=== PATIENT | female | born 1950 | race Caucasian/White ===

== ENCOUNTER 2017-08-04 20:10 | Inpatient (IN) | payer MEDICARE, OTHER ==
--- NOTE | 2017-08-04 20:27 | ED ---
Fall HPI <Cristian Vences - Last Filed: 08/04/17 23:35> - General Source: family, EMS Mode of arrival: EMS <Marisol Pablo - Last Filed: 08/05/17 00:11> - General Chief Complaint: Fall Stated Complaint: Fall Time Seen by Provider: 08/04/17 20:13 - History of Present Illness Initial Comments: 67-year-old female patient presents to the emergency department today for complaints of left hip and thigh pain after experiencing a fall at home. The patient states that she was walking in the hallway when her grippy socks caught on the floor and she fell sideways landing on her hip. She states since then she has been having significant pain. States she is unable to bend her knee up without experiencing pain in the hip. She denies any numbness or tingling to the leg. Denies hitting her head or losing consciousness at the time of fall. She denies any neck or back pain with this. Patient denies any headache, neck pain, back pain, chest pain, shortness of breath, dizziness, weakness, abdominal pain, nausea, vomiting, or difficulties with bowel movements or urination. (Marisol Pablo) - Related Data Home Medications Medication Instructions Recorded Confirmed No Known Home Medications [No 08/04/17 08/04/17 Known Home Medications] Allergies Allergy/AdvReac Type Severity Reaction Status Date / Time amoxicillin AdvReac Rash/Hives Verified 08/04/17 20:16 codeine AdvReac Rash/Hives Verified 08/04/17 20:16 Penicillins AdvReac Rash/Hives Verified 08/04/17 20:16 Review of Systems ROS Other: All systems not noted in ROS Statement are negative. <Cristian Vences - Last Filed: 08/04/17 23:35> ROS Other: All systems not noted in ROS Statement are negative. <Marisol Pablo - Last Filed: 08/05/17 00:11> ROS Statement: Those systems with pertinent positive or pertinent negative responses have been documented in the HPI. 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 History of Any Multi-Drug Resistant Organisms: None Reported Past Surgical History: No Surgical Hx Reported Past Psychological History: No Psychological Hx Reported Smoking Status: Never smoker Past Alcohol Use History: None Reported Past Drug Use History: None Reported <AngieMarisol jorgensen M - Last Filed: 08/05/17 00:11> General Exam General appearance: alert, in no apparent distress, other (This is a well- developed, well-nourished elderly female patient in no acute distress. Vital signs upon presentation are temperature 98.4F, pulse 87, respirations 16, blood pressure 145/70, pulse ox 97% on room air.) Eye exam: Present: normal appearance, PERRL, EOMI. Absent: scleral icterus, conjunctival injection, periorbital swelling ENT exam: Present: normal exam, normal oropharynx, mucous membranes moist Neck exam: Present: normal inspection, full ROM, other (Nontender, no step-off, no deformity to firm midline palpation of the posterior cervical spine. Full range of motion without pain or limitation.). Absent: tenderness, meningismus, lymphadenopathy Respiratory exam: Present: normal lung sounds bilaterally. Absent: respiratory distress, wheezes, rales, rhonchi, stridor Cardiovascular Exam: Present: regular rate, normal rhythm, normal heart sounds. Absent: systolic murmur, diastolic murmur, rubs, gallop, clicks GI/Abdominal exam: Present: soft, normal bowel sounds. Absent: distended, tenderness, guarding, rebound, rigid Extremities exam: Present: normal inspection, tenderness (Over the left hip, lateral.), normal capillary refill, other (Skin to the bilateral lower extremities is pink, warm, and dry. Cap refills less than 3 seconds. Pedal pulses are 2+ and equal bilaterally.). Absent: full ROM (Decreased range of motion to left hip due to increased pain with movement), pedal edema, joint swelling, calf tenderness Back exam: Present: normal inspection Neurological exam: Present: alert, oriented X3, CN II-XII intact Psychiatric exam: Present: normal affect, normal mood Skin exam: Present: warm, dry, intact, normal color. Absent: rash <AngiejoslynMarisol M - Last Filed: 08/05/17 00:11> Vital Signs 08/04/17 08/04/17 08/04/17 20:12 22:06 22:53 Temperature 98.4 F Pulse Rate 87 84 84 Respiratory 16 18 16 Rate Blood Pressure 145/70 129/68 124/65 O2 Sat by Pulse 97 95 93 L Oximetry Medical Decision Making <Cristian Vences - Last Filed: 08/04/17 23:35> - Radiology Data Radiology results: report reviewed, image reviewed <Marisol Pablo - Last Filed: 08/05/17 00:11> - Medical Decision Making Medical decision making; 67-year-old female had a fall with injury to her left hip area. A CAT scan showed evidence of a fracture to the left inferior and superior rami . No apparent fracture of the acetabulum. The patient has pain with manipulation of the hip area. The case is discussed with Dr. Berger, on- call orthopedic surgeon. Patient be admitted to his service for further evaluation and management. Dr. Vences (Cristian Vences) 67-year-old female patient presented to the emergency department today for evaluation of left hip pain after a fall at home. CT showed evidence of fracture to the left inferior and superior rami. I did discuss findings with the patient. My attending Dr. Vences did speak to orthopedic on-call Dr. Berger. Plan is to admit the patient for further evaluation. (Marisol Pablo) - Lab Data Lab Results 08/04/17 Range/Units 21:54 Urine Color Yellow Urine Appearance Clear (Clear) Urine pH 5.5 (5.0-8.0) Ur Specific [employer] 1.013 (1.001-1.035) Urine Protein Negative (Negative) Urine Glucose (UA) Negative (Negative) Urine Ketones Negative (Negative) Urine Blood Negative (Negative) Urine Nitrite Positive H (Negative) Urine Bilirubin Negative (Negative) Urine Urobilinogen <2.0 (<2.0) mg/dL Ur Leukocyte Esterase Large H (Negative) Urine RBC 1 (0-5) /hpf Urine WBC 24 H (0-5) /hpf Urine WBC Clumps Few H (None) /hpf Ur Squamous Epith Cells <1 (0-4) /hpf Urine Bacteria Many H (None) /hpf Urine Mucus Rare H (None) /hpf - Radiology Data A single AP view of the pelvis and 2 views of left hip are obtained. Department was reviewed in its entirety. Impression by Dr. Fernandez shows demineralization with acute minimally displaced fracture lateral aspect left superior pelvic ramus with probable acetabular extension. There is acute nondisplaced vertical fracture more medially through the left inferior pelvic ramus. CT of the pelvis without contrast was obtained, report was reviewed in its entirety. Impression by Dr. Fernandez shows redemonstration of acute nondisplaced fracture medial aspect left inferior pelvic ramus and oblique minimally displaced through the lateral aspect of the superior pelvic ramus. There is no definitive acetabular extension identified on CT. No no additional fractures are identified. (Marisol Pablo) Disposition <Cristian Vences - Last Filed: 08/04/17 23:35> Decision to Admit Reason: Admit from EC Decision Date: 08/05/17 Decision Time: 00:11 <Marisol Pablo - Last Filed: 08/05/17 00:11> Clinical Impression: Fracture of left pelvis Disposition: ADMITTED IP TO THIS [facility] Condition: Serious Referrals: None,Stated [Primary Care Provider] - 1-2 days
--- NOTE | 2017-08-04 20:45 | XR ---
EXAMINATION TYPE: XR Hip LT and AP Pelvis DATE OF EXAM: 08/04/2017 COMPARISON: NONE HISTORY: Pelvic and left hip pain after fall injury. TECHNIQUE: A single AP view of the pelvis is obtained. Two views of the left hip are obtained. FINDINGS: Osseous structures are demineralized which is noted to lower radiographic sensitivity. The re is acute minimally displaced fracture through the lateral aspect left superior pelvic ramus near l evel of acetabulum. There is acute nondisplaced vertical fracture or centrally in the left inferior p elvic ramus. Incidental scattered pelvic phleboliths. Sacroiliac joints are preserved. There is no additional acute fracture in the left hip. No hip joint dislocation is identified. IMPRESSION: There is demineralization with acute minimally displaced fracture lateral aspect left s uperior pelvic ramus with probable acetabular extension. There is acute nondisplaced vertical fractur e more medially through the left inferior pelvic ramus. (Initial encounter closed type posttraumatic fracture)
--- NOTE | 2017-08-04 21:33 | CT ---
EXAMINATION TYPE: CT pelvis wo con DATE OF EXAM: 08/04/2017 COMPARISON: Same day pelvic and left hip x-ray. HISTORY: Fall. Abnormal pelvic and left hip x-ray. Left hip pain. CT DLP: 164.3 mGycm Automated exposure control for dose reduction was used. FINDINGS: As suspected on plain films there is minimally displaced suspected acute fracture through the inferio r left pelvic ramus centrally near pubic symphysis. No suspicious pubic symphysis widening is seen. There is acute minimally displaced oblique fracture through the lateral aspect left superior pelvic r amus, this does not have definitive involvement of the anterior column of the left acetabulum on axia l images. There are no additional fractures in the pelvis including sacrum. Sacroiliac joints are maintained. There is symmetric moderate axial joint space loss in both hips. No joint dislocation is seen. There are scattered pelvic phleboliths. Visualized portion of lower abdomen and pelvis shows no suspi cious abnormality. IMPRESSION: REDEMONSTRATION OF ACUTE NONDISPLACED FRACTURE MEDIAL ASPECT LEFT INFERIOR PELVIC RAMUS AND OBLIQUE M INIMALLY DISPLACED THROUGH THE LATERAL ASPECT OF SUPERIOR PELVIC RAMUS. THERE IS NO DEFINITIVE ACETAB ULAR EXTENSION IDENTIFIED ON CT. NO NEW ADDITIONAL FRACTURES ARE IDENTIFIED .
[2017-08-04 22:18] LABS: Appearance,Urine Clear (Clear); Bacteria,Urine Many /hpf; Bilirubin,Urine Negative (Negative); Blood,Urine Negative (Negative); Color,Urine Yellow; Glucose,Urine (UA) Negative (Negative); Ketones,Urine Negative (Negative); Leukocyte Esterase,Urine Large (Negative); Mucus,Urine Rare /hpf; Nitrite,Urine Positive (Negative); PH, Urine 5.5 (5.0-8.0); Protein,Urine Negative (Negative); RBC,Urine 1 /hpf (0-5); Specific Gravity,Urine 1.013 (1.001-1.035); Squamous Epithelial Cell,Urine <1 /hpf (0-4); Urobilinogen,Urine <2.0 mg/dL (<2.0); WBC,Urine 24 /hpf (0-5)
[2017-08-05] MEDS ORDERED: NALOXONE 0.4 MG/ML 1 ML VIAL IV PRN (00:11)
[2017-08-05] MEDS ORDERED: ONDANSETRON 4 MG/2 ML VIAL IVP PRN (00:11)
[2017-08-05] MEDS ORDERED: cefTRIAXone IN SWFI 1,000 MG/10 ML SYRINGE IVP STA (00:13)
--- NOTE | 2017-08-05 00:15 | ED ---
Medical Decision Making - Medical Decision Making Patient also has evidence of urinary tract infection. We'll start her on Rocephin while she is here in the hospital. - Lab Data Lab Results 08/04/17 Range/Units 21:54 Urine Color Yellow Urine Appearance Clear (Clear) Urine pH 5.5 (5.0-8.0) Ur Specific [place] 1.013 (1.001-1.035) Urine Protein Negative (Negative) Urine Glucose (UA) Negative (Negative) Urine Ketones Negative (Negative) Urine Blood Negative (Negative) Urine Nitrite Positive H (Negative) Urine Bilirubin Negative (Negative) Urine Urobilinogen <2.0 (<2.0) mg/dL Ur Leukocyte Esterase Large H (Negative) Urine RBC 1 (0-5) /hpf Urine WBC 24 H (0-5) /hpf Urine WBC Clumps Few H (None) /hpf Ur Squamous Epith Cells <1 (0-4) /hpf Urine Bacteria Many H (None) /hpf Urine Mucus Rare H (None) /hpf Disposition Clinical Impression: Fracture of left pelvis, Urinary tract infection Disposition: ADMITTED IP TO THIS [facility] Condition: Serious Referrals: None,Stated [Primary Care Provider] - 1-2 days
--- NOTE | 2017-08-05 00:35 | XR ---
EXAMINATION TYPE: XR chest 1V portable DATE OF EXAM: 08/05/2017 COMPARISON: NONE HISTORY: Pain TECHNIQUE: Single frontal view of the chest is obtained. FINDINGS: Heart is enlarged. There is no gross heart failure. There are chest leads. There is increa sed density over the right heart consistent with hiatal hernia. Exam is limited by the single view. T here is no sign of pleural effusion. There are chest leads. IMPRESSION: Cardiomegaly. Limited exam. There is probably COPD. No heart failure. There is probably a large hiatal hernia.
[2017-08-05 01:38] LABS: Basophils % (A) 0 %; Eosinophils % (A) 0 %; HCT 37.4 % (34.0-46.0); HGB 12.1 gm/dL (11.4-16.0); Lymphocytes # (A) 0.6 k/uL (1.0-4.8); Lymphocytes % (A) 5 %; MCH 27.3 pg (25.0-35.0); MCHC 32.2 g/dL (31.0-37.0); MCV 84.5 fL (80.0-100.0); Mean Platelet Volume 6.9; Monocytes # (A) 0.5 k/uL (0-1.0); Monocytes % (A) 4 %; Neutrophils # (A) 9.7 k/uL (1.3-7.7); Neutrophils % (A) 90 %; Platelet Count 245 k/uL (150-450); RBC 4.43 m/uL (3.80-5.40); RDW 13.4 % (11.5-15.5); WBC 10.9 k/uL (3.8-10.6)
[2017-08-05] MEDS: SODIUM CHLORIDE 0.9% 1,000 ML IV SCH ×2 (01:39→17:43)
[2017-08-05 01:47] LABS: Partial Thromboplastin Time 22.7 sec (22.0-30.0); Prothrombin Time 10.1 sec (9.0-12.0)
[2017-08-05 01:51] LABS: Albumin 3.9 g/dL (3.5-5.0); Calcium 9.5 mg/dL (8.4-10.2); Potassium 4.3 mmol/L (3.5-5.1); Total Bilirubin 1.2 mg/dL (0.2-1.3); Total Protein 6.8 g/dL (6.3-8.2)
[2017-08-05 03:34] VITALS: BMI 21.9
[2017-08-05] MEDS: MORPHINE SULFATE 4 MG/ML SYRINGE IV PRN ×2 (03:47→09:36)
--- NOTE | 2017-08-05 12:38 | P.HPOR ---
History of Present Illness H&P Date: 08/05/17 Chief Complaint: Left-sided pelvic pain Patient is a very pleasant 67-year-old female who is seen and examined at bedside for further treatment and evaluation for left superior and left inferior pubic rami fractures status post fall. Patient states she fell in her home yesterday in her hallway landing on her left side. She's had significant pain since that time. She was brought to the emergency department for further treatment and evaluation. X-rays of the left hip and pelvis along with the pelvis CT were performed which did show evidence of left superior and inferior pubic rami fractures. No evidence of hip joint fracture or dislocation was found. Patient was also found to have a urinary tract infection in the emergency department. She is currently on Rocephin. She denies any lower extremity radiculopathy or weakness bilaterally. She does have some difficulty with rolling over in bed and lifting her left lower extremity due to her pelvic pain. She states she sustained a similar injury in 2010 in which she was in a wheelchair for approximately 6 months. She does live alone at home in a single floor dwelling. Patient feels she would like to go but is unable to ambulate or move without significant difficulty. Straight catheterization was performed this morning. Consultation with physical therapy has not been placed. Patient has no significant medical history and is not currently taking any medications at home. She does report an ALLERGY to codeine. 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 History of Any Multi-Drug Resistant Organisms: None Reported Past Surgical History: No Surgical Hx Reported Past Psychological History: No Psychological Hx Reported Smoking Status: Never smoker Past Alcohol Use History: None Reported Past Drug Use History: None Reported - Past Family History Father History Unknown: Yes Medications and Allergies Home Medications Medication Instructions Recorded Confirmed Type No Known Home Medications [No 08/04/17 08/04/17 History Known Home Medications] Allergies Allergy/AdvReac Type Severity Reaction Status Date / Time Latex, Natural Rubber Allergy Rash/Hives Verified 08/05/17 03:35 amoxicillin AdvReac Rash/Hives Verified 08/05/17 03:35 codeine AdvReac Rash/Hives Verified 08/05/17 03:35 Penicillins AdvReac Rash/Hives Verified 03/11/18 03:35 Physical Examination Physical exam: Patient is awake, alert, and oriented 3 Vital signs stable Good chest excursion with deep inspiration and expiration Abdomen soft nontender Examination of lumbar spine reveals skin is intact with no abrasions, lacerations, or bruises; no erythema, purulence or signs of infection No pain with palpation of the lower lumbar spine and sacrum Dorsiflexion, plantarflexion, and extensor hallucis longus positive sustained bilaterally Lower extremity strength 5/5 on the right Significant difficulty with moving the left lower extremity with hip flexion due to pain Significant exacerbation of left-sided pelvic pain while rolling the patient to her side No signs or symptoms of DVT; no calf pain Pneumatic cuffs intact bilateral lower extremities Neurovascularly intact Results Pertinent studies: X-rays of the left hip and pelvis: Acute minimally displaced fracture at the lateral aspect of the left superior pelvic ramus with probable acetabular extension; acute nondisplaced vertical fracture more medially to the left inferior pubic ramus; no additional fracture seen within the left hip; no evidence of hip joint dislocation CT of the pelvis: Redemonstrated acute nondisplaced fracture of the medial aspect of the left inferior pubic ramus an oblique minimally displaced fracture to the lateral aspect of the superior pelvic ramus with no definitive acetabular extension identified on CT; no evidence of new additional fractures identified - Labs Labs: Abnormal Lab Results - Last 24 Hours (Table) 08/04/17 08/05/17 08/05/17 Range/Units 21:54 01:20 01:20 WBC 10.9 H (3.8-10.6) k/uL Neutrophils # 9.7 H (1.3-7.7) k/uL Lymphocytes # 0.6 L (1.0-4.8) k/uL Chloride 108 H (98-107) mmol/L BUN 20 H (7-17) mg/dL Glucose 118 H (74-99) mg/dL Urine Nitrite Positive H (Negative) Ur Leukocyte Esterase Large H (Negative) Urine WBC 24 H (0-5) /hpf Urine WBC Clumps Few H (None) /hpf Urine Bacteria Many H (None) /hpf Urine Mucus Rare H (None) /hpf Microbiology - Last 24 Hours (Table) 08/04/17 21:54 Urine Culture - Preliminary Urine,Voided H & H 08/05/17 Range/Units 01:20 Hgb 12.1 (11.4-16.0) gm/dL Hct 37.4 (34.0-46.0) % Coagulation 08/05/17 Range/Units 01:20 INR 1.0 (<1.2) Result Diagrams: 08/05/17 01:20 08/05/17 01:20 Assessment and Plan Assessment: Assessment: Acute traumatic left superior and left inferior pubic rami fractures Status post fall Pelvic pain Difficulty with ambulation mobility Urinary tract infection (1) Status post fall Current Visit: Yes Status: Acute Code(s): Z91.81 - HISTORY OF FALLING SNOMED Code(s): 322403857 (2) Acute pelvic pain Current Visit: Yes Status: Acute Code(s): R10.2 - PELVIC AND PERINEAL PAIN SNOMED Code(s): 589091300 (3) Fracture of left pelvis Current Visit: Yes Status: Acute Code(s): S32.9XXA - FRACTURE OF UNSP PARTS OF LUMBOSACRAL SPINE AND PELVIS, INIT SNOMED Code(s): 81823724 (4) Urinary tract infection Current Visit: Yes Status: Acute Code(s): N39.0 - URINARY TRACT INFECTION, SITE NOT SPECIFIED SNOMED Code(s): 56667060 Plan: Plan: 1. Patient has been discussed in detail with Dr. Berger. After reviewing of imaging, physical examination of the patient, and further discussion with the patient, we'll currently plan to continue with conservative treatment. We are not planning for surgical intervention. She has been nothing by mouth status. We will discontinue this and she may resume a regular diet. She has been receiving morphine IV for pain control. We will plan to add Tylenol 650 mg 1 tab every 4 hours as needed for pain control. Patient does have an ALLERGY to codeine and we will avoid these medications. She has been taking morphine without difficulty. She will continue to receive morphine for breakthrough pain. We will try to transition her off of morphine IV in anticipation for discharge home tomorrow. We will plan for consultation with physical therapy to help increase the patient's mobility and ambulation. A prescription was also written for a wheelchair to help the patient aid in ambulation. Prescription has been written and provided to case management who will plan to obtain this wheelchair. We discussed patient may continue to weight-bear as tolerated. If she has some improvement of symptoms throughout the day, we'll plan for discharge home as early as tomorrow, 08/05/2017. 2. Continue with Rocephin as prescribed for urinary tract infection; Currently waiting for urinary culture results; continue with straight catheterization as needed 3. We will continue to follow patient closely 4. Following discharge, patient will plan to follow up with Carey Del Valle PA-C or Dr. Berger at [facility] in approximately 2 weeks for further evaluation 5. Patient has been discussed in detail with Dr. Berger and he agrees with this plan Time with Patient: Less than 30
[2017-08-05] MEDS: ACETAMINOPHEN TAB 325 MG TAB PO PRN ×2 (15:16→23:19)
[2017-08-05] MEDS ORDERED: cefTRIAXone IN SWFI 1,000 MG/10 ML SYRINGE IVP SCH (23:00)
[2017-08-05 23:34] VITALS: RESP 18
[2017-08-06] MEDS: ACETAMINOPHEN TAB 325 MG TAB PO PRN ×2 (05:43→10:24)
--- NOTE | 2017-08-06 08:23 | P.DS ---
Providers Date of admission: 08/05/17 00:39 Expected date of discharge: 08/06/17 Attending physician: Abbe Berger Primary care physician: Stated None - Discharge Diagnosis(es) (1) Acute pelvic pain Current Visit: Yes Status: Acute (2) Fracture of left pelvis Current Visit: Yes Status: Acute (3) Status post fall Current Visit: Yes Status: Acute Hospital Course: This is a 67-year-old female admitted to [facility] on 2017 after falling and sustaining injuries to her left hip. On exam and x-ray in the emergency department she is found to have a minimally displaced superior and inferior pubic rami fractures on the left. She was also found to have a urinary tract infection. The patient is doing well today. We're waiting physical therapy for evaluation. The patient is transferring from bed to chair independently. She is taking only Tylenol for pain as needed. The patient may be discharged to home today if considered safe by physical therapy. She is weightbearing as tolerated to the left lower extremity with walker. Patient Condition at Discharge: Serious Plan - Discharge Summary Discharge Rx Participant: Yes New Discharge Prescriptions: New Sulfamethox-Tmp 800-160Mg [Bactrim DS 800-160 mg] 1 tab PO Q12HR #14 tab Discharge Medication List Sulfamethox-Tmp 800-160Mg [Bactrim DS 800-160 mg] 1 tab PO Q12HR #14 tab [Rx] Follow up Appointment(s)/Referral(s): None,Stated [Primary Care Provider] - 1-2 days Abbe Berger MD [STAFF PHYSICIAN] - 2 Weeks (Patient may follow-up with Carey Del Valle PA-C or Dr. Berger at [facility] in 2 weeks following discharge. ) [facility] Visiting Nurse, [NON-STAFF] - As Needed Activity/Diet/Wound Care/Special Instructions: Wheelchair ordered through [facility]: #[phone] 1. May use a wheelchair to aid in ambulation as needed 2. Weightbearing as tolerated on the left lower extremity with walker. 3. May take Tylenol as needed for pain. Discharge Disposition: HOME SELF-CARE
[2017-08-06 13:47] VITALS: BP 121/75; PULSE 78; TEMP 98.5
[2017-08-06] MEDS ORDERED: MORPHINE ORAL SOLN 10 MG/5 ML CUP PO PRN (14:19)
== END 2017-08-06 16:44 | disposition home health service (06) | DRG 536 ==
LOC: EC 20:10 → 6PED 08-05 00:39
PROVIDERS: ADMIT Orthopaedic Surgery; ATTEND Orthopaedic Surgery
DX: S32.512A Fracture of superior rim of left pubis, initial encounter for closed fracture (principal); G89.11 Acute pain due to trauma; N39.0 Urinary tract infection, site not specified; S32.592A Other specified fracture of left pubis, initial encounter for closed fracture; Z85.828 Personal history of other malignant neoplasm of skin; Z91.81 History of falling; Z86.73 Personal history of transient ischemic attack (TIA), and cerebral infarction without residual deficits; Z88.5 Allergy status to narcotic agent; Z88.0 Allergy status to penicillin; Z91.040 Latex allergy status; W19.XXXA Unspecified fall, initial encounter; Y92.009 Unspecified place in unspecified non-institutional (private) residence as the place of occurrence of the external cause
CPT/HCPCS: 51701; 71045; 72192; 73502; 80053; 81001; 85025; 85610; 85730; 87077; 87086; 87186; 93005; 96374; 99285

== ENCOUNTER 2023-05-15 11:18 | Observation (INO) | payer MEDICARE, OTHER ==
[2023-05-15] MEDS ORDERED: SODIUM CHLORIDE 0.9% 1,000 ML IV STA (12:19)
[2023-05-15 12:42] LABS: Basophils # (A) 0.1 k/uL (0-0.2); Basophils % (A) 0 %; Eosinophils # (A) 0.2 k/uL (0-0.7); Eosinophils % (A) 1 %; HCT 35.2 % (34.0-46.0); HGB 11.3 gm/dL (11.4-16.0); Hypochromasia Slight; Lymphocytes # (A) 0.7 k/uL (1.0-4.8); Lymphocytes % (A) 6 %; MCH 28.3 pg (25.0-35.0); MCHC 32.1 g/dL (31.0-37.0); MCV 88.3 fL (80.0-100.0); Mean Platelet Volume 7.3; Monocytes # (A) 0.6 k/uL (0-1.0); Monocytes % (A) 4 %; Neutrophils # (A) 11.4 k/uL (1.3-7.7); Neutrophils % (A) 88 %; Platelet Count 314 k/uL (150-450); RBC 3.99 m/uL (3.80-5.40); RDW 14.6 % (11.5-15.5)
--- NOTE | 2023-05-15 12:49 | ED ---
Weakness HPI - General Chief complaint: Weakness Stated complaint: Weakness Time Seen by Provider: 05/15/23 12:10 Source: patient, EMS, RN notes reviewed, old records reviewed Mode of arrival: EMS Limitations: no limitations - History of Present Illness Initial comments: This is a 73-year-old female to the emergency department for evaluation of weakness today. Patient weakness not feeling well occasionally altered mental status. Patient has no chest pain or travel history or sick contacts no recent change in medications she is feels like she is not taking care of herself well feels confused, not acting appropriately, without headache no chest pain shortness breath or abdominal pain. No recent travel history or sick contacts. MD Complaint: generalized weakness, lack of energy, difficulty walking -: days(s) Location: generalized Severity: moderate Severity scale (1-10): 4 Quality: aching Consistency: constant Improves with: none Worsens with: none Context: recent illness, history of similar Associated Symptoms: confusion - Related Data Previous Rx's Medication Instructions Recorded Acetaminophen Tab [Tylenol] 650 mg PO Q6HR PRN tab 05/22/23 Famotidine [Pepcid] 20 mg PO DAILY tab 05/22/23 Folic Acid 1 mg PO DAILY #30 tablet 05/22/23 Heparin Sodium,Porcine (1 ml) 5,000 unit SQ Q12HR each 05/22/23 [Heparin Sodium] Multivitamin [Multivitamins Adult 1 each PO DAILY #30 tab 05/22/23 Gummies] Thiamine [Vitamin B-1] 100 mg PO DAILY #30 tablet 05/22/23 Allergies Allergy/AdvReac Type Severity Reaction Status Date / Time amoxicillin Allergy Rash/Hives Verified 05/15/23 13:21 codeine Allergy Rash/Hives Verified 05/15/23 13:21 Latex, Natural Rubber Allergy Rash/Hives Verified 05/15/23 13:21 Penicillins Allergy Rash/Hives Verified 05/15/23 13:21 Review of Systems ROS Statement: Those systems with pertinent positive or pertinent negative responses have been documented in the HPI. ROS Other: All systems not noted in ROS Statement are negative. 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 History of Any Multi-Drug Resistant Organisms: None Reported Past Surgical History: Hernia Repair Past Psychological History: No Psychological Hx Reported Smoking Status: Never smoker Past Alcohol Use History: None Reported Past Drug Use History: None Reported - Past Family History Father History Unknown: Yes General Exam Limitations: no limitations, altered mental status General appearance: alert, in no apparent distress, anxious Head exam: Present: atraumatic, normocephalic, normal inspection Eye exam: Present: normal appearance, PERRL, EOMI. Absent: scleral icterus, conjunctival injection, periorbital swelling ENT exam: Present: normal exam, mucous membranes moist Neck exam: Present: normal inspection. Absent: tenderness, meningismus, lymphad enopathy Respiratory exam: Present: normal lung sounds bilaterally. Absent: respiratory distress, wheezes, rales, rhonchi, stridor Cardiovascular Exam: Present: regular rate, normal rhythm, normal heart sounds. Absent: systolic murmur, diastolic murmur, rubs, gallop, clicks GI/Abdominal exam: Present: soft, normal bowel sounds. Absent: distended, tenderness, guarding, rebound, rigid Extremities exam: Present: normal inspection, full ROM, normal capillary refill. Absent: tenderness, pedal edema, joint swelling, calf tenderness Back exam: Present: normal inspection Neurological exam: Present: alert, oriented X3, CN II-XII intact Psychiatric exam: Present: normal affect, normal mood Skin exam: Present: warm, dry, intact, normal color. Absent: rash Course Vital Signs 05/15/23 05/15/23 05/15/23 11:20 11:30 12:00 Temperature 97.7 F Pulse Rate 89 83 81 Respiratory 18 16 15 Rate Blood Pressure 96/71 105/74 82/66 O2 Sat by Pulse 99 100 96 Oximetry 05/15/23 05/15/23 05/15/23 12:30 13:00 13:30 Temperature Pulse Rate 85 83 78 Respiratory 17 11 L 13 Rate Blood Pressure 100/67 110/95 114/71 O2 Sat by Pulse 98 97 96 Oximetry 05/15/23 05/15/23 14:00 18:32 Temperature Pulse Rate 82 83 Respiratory 15 18 Rate Blood Pressure 106/67 117/76 O2 Sat by Pulse 97 100 Oximetry - Reevaluation(s) Reevaluation #1: 05/15/23 17:29 Medical records reviewed Reevaluation #2: 05/15/23 17:29 Patient has no change in symptoms Reevaluation #3: 05/15/23 17:29 Patient informed results questions answered Reevaluation #4: 05/15/23 17:29 Was pt. sent in by a medical professional or institution (WENDIE Nazario, NUTRITION PROGRAM INSTRUCTOR, urgent care, hospital, or usp...) When possible be specific @ -no Did you speak to anyone other than the patient for history (EMS, parent, family, police, friend...)? What history was obtained from this source @ -no Did you review nursing and triage notes (agree or disagree)? Why? @ -agree Are old charts reviewed (outside hosp., previous admission, EMS record, old EKG, old radiological studies, urgent care reports/EKG's, usp records)? Report findings @ -yes Differential Diagnosis (chest pain, altered mental status, abdominal pain women, abdominal pain men, vaginal bleeding, weakness, fever, dyspnea, syncope, headache, dizziness, GI bleed, back pain, seizure, CVA, palpatations, mental health, musculoskeletal)? @ -prior EKG interpreted by me (3pts min.). @ -yes X-rays interpreted by me (1pt min.). @ -no CT interpreted by me (1pt min.). @ -no U/S interpreted by me (1pt. min.). @ -no What testing was considered but not performed or refused? (CT, X-rays, U/S, labs)? Why? @ -none What meds were considered but not given or refused? Why? @ -none Did you discuss the management of the patient with other professionals (professionals i.e. WENDIE Nazario, NUTRITION PROGRAM INSTRUCTOR, lab, RT, psych nurse, protective services social worker, golf teacher, teacher, desk officer, foster care case manager)? Give summary @ -no Was smoking cessation discussed for >3mins.? @ -no Was critical care preformed (if so, how long)? @ -no Were there social determinants of health that impacted care today? How? (Homelessness, low income, unemployed, alcoholism, drug addiction, transportat ion, low edu. Level, literacy, decrease access to med. care, intermediate, rehab)? @ -none Was there de-escalation of care discussed even if they declined (Discuss DNR or withdrawal of care, Hospice)? DNR status @ -no What co-morbidities impacted this encounter? (DM, HTN, Smoking, COPD, CAD, Cancer, CVA, ARF, Chemo, Hep., AIDS, mental health diagnosis, sleep apnea, morbid obesity)? @ -none Was patient admitted / discharged? Hospital course, mention meds given and route, prescriptions, significant lab abnormalities, going to OR and other pertinent info. @ - 73 female to the emergency department for evaluation of weakness found of significant urinary tract infection will be admitted for IV antibiotics, UTI with confusion ADmiitted Undiagnosed new problem with uncertain prognosis? @ -no Drug Therapy requiring intensive monitoring for toxicity (Heparin, Nitro, Insulin, Cardizem)? @ -no Were any procedures done? @ -no Diagnosis/symptom? @ -UTI, weakness, altered mental status Acute, or Chronic, or Acute on Chronic? @ -Acute Uncomplicated (without systemic symptoms) or Complicated (systemic symptoms)? @ -Complicated Side effects of treatment? @ -no Exacerbation, Progression, or Severe Exacerbation? @ -exacerbation Poses a threat to life or bodily function? How? (Chest pain, USA, PR, pneumonia, PE, COPD, DKA, ARF, appy, cholecystitis, CVA, Diverticulitis, Homicidal, Suicidal, threat to staff... and all critical care pts) @ -yes UTI with altered mental status Reevaluation #5: 05/15/23 17:29 Differential Weakness: Hypoglycemia, shock, sepsis, hyponatremia, anemia, infection, PR, ETOH, adverse medicine reaction, overdose, stroke, this is not meant to be an all-inclusive list. - Consultations Consultation #1: Spoke with H were agrees to admit this patient EKG Findings - EKG Comments: EKG Findings:: EKG is sinus 85 ID 131 QRS 82 QTC 4:15 - EKG Results: EKG: interpreted by ERMD Medical Decision Making - Medical Decision Making 73 female to the emergency department for evaluation of weakness found of significant urinary tract infection will be admitted for IV antibiotics, UTI with confusion - Lab Data Result diagrams: 05/22/23 05:41 05/22/23 05:41 Lab Results 05/15/23 05/15/23 05/15/23 Range/Units 12: 12: 12: WBC 13.0 H (3.8-10.6) k/uL RBC 3.99 (3.80-5.40) m/uL Hgb 11.3 L (11.4-16.0) gm/dL Hct 35.2 (34.0-46.0) % MCV 88.3 (80.0-100.0) fL MCH 28.3 (25.0-35.0) pg MCHC 32.1 (31.0-37.0) g/dL RDW 14.6 (11.5-15.5) % Plt Count 314 (150-450) k/uL MPV 7.3 Neutrophils % 88 % Lymphocytes % 6 % Monocytes % 4 % Eosinophils % 1 % Basophils % 0 % Neutrophils # 11.4 H (1.3-7.7) k/uL Lymphocytes # 0.7 L (1.0-4.8) k/uL Monocytes # 0.6 (0-1.0) k/uL Eosinophils # 0.2 (0-0.7) k/uL Basophils # 0.1 (0-0.2) k/uL Hypochromasia Slight PT 11.1 (10.0-12.5) sec INR 1.0 (<1.2) APTT 24.1 (22.0-30.0) sec Sodium 139 (137-145) mmol/L Potassium 4.2 (3.5-5.1) mmol/L Chloride 101 (98-107) mmol/L Carbon Dioxide 26 (22-30) mmol/L Anion Gap 12 mmol/L BUN 21 H (7-17) mg/dL Creatinine 0.69 (0.52-1.04) mg/dL Est GFR (CKD-EPI)AfAm >90 (>60 ml/min/1.73 sqM) Est GFR (CKD-EPI)NonAf 88 (>60 ml/min/1.73 sqM) Glucose 112 H (74-99) mg/dL Plasma Lactic Acid Jelani (0.7-2.0) mmol/L Calcium 10.1 (8.4-10.2) mg/dL Ionized Calcium Bryce 5.1 (4.5-5.3) mg/dL Phosphorus 4.1 (2.5-4.5) mg/dL Magnesium 2.0 (1.6-2.3) mg/dL Total Bilirubin 1.8 H (0.2-1.3) mg/dL AST 73 H (14-36) U/L ALT 26 (4-34) U/L Alkaline Phosphatase 226 H (38-126) U/L Troponin I (0.000-0.034) ng/mL NT-Pro-B Natriuret Pep 165 pg/mL Total Protein 7.7 (6.3-8.2) g/dL Albumin 3.4 L (3.5-5.0) g/dL Urine Color Urine Appearance (Clear) Urine pH (5.0-8.0) Ur Specific [place] (1.001-1.035) Urine Protein (Negative) Urine Glucose (UA) (Negative) Urine Ketones (Negative) Urine Blood (Negative) Urine Nitrite (Negative) Urine Bilirubin (Negative) Urine Urobilinogen (<2.0) mg/dL Ur Leukocyte Esterase (Negative) Urine RBC (0-5) /hpf Urine WBC (0-5) /hpf Urine Bacteria (None) /hpf Influenza Type A (PCR) (Not Detectd) Influenza Type B (PCR) (Not Detectd) RSV (PCR) (Not Detectd) SARS-CoV-2 (PCR) (Not Detectd) 05/15/23 05/15/23 05/15/23 Range/Units 12:26 12:26 13:13 WBC (3.8-10.6) k/uL RBC (3.80-5.40) m/uL Hgb (11.4-16.0) gm/dL Hct (34.0-46.0) % MCV (80.0-100.0) fL MCH (25.0-35.0) pg MCHC (31.0-37.0) g/dL RDW (11.5-15.5) % Plt Count (150-450) k/uL MPV Neutrophils % % Lymphocytes % % Monocytes % % Eosinophils % % Basophils % % Neutrophils # (1.3-7.7) k/uL Lymphocytes # (1.0-4.8) k/uL Monocytes # (0-1.0) k/uL Eosinophils # (0-0.7) k/uL Basophils # (0-0.2) k/uL Hypochromasia PT (10.0-12.5) sec INR (<1.2) APTT (22.0-30.0) sec Sodium (137-145) mmol/L Potassium (3.5-5.1) mmol/L Chloride (98-107) mmol/L Carbon Dioxide (22-30) mmol/L Anion Gap mmol/L BUN (7-17) mg/dL Creatinine (0.52-1.04) mg/dL Est GFR (CKD-EPI)AfAm (>60 ml/min/1.73 sqM) Est GFR (CKD-EPI)NonAf (>60 ml/min/1.73 sqM) Glucose (74-99) mg/dL Plasma Lactic Acid Jelani 1.2 (0.7-2.0) mmol/L Calcium (8.4-10.2) mg/dL Ionized Calcium Bryce (4.5-5.3) mg/dL Phosphorus (2.5-4.5) mg/dL Magnesium (1.6-2.3) mg/dL Total Bilirubin (0.2-1.3) mg/dL AST (14-36) U/L ALT (4-34) U/L Alkaline Phosphatase (38-126) U/L Troponin I <0.012 (0.000-0.034) ng/mL NT-Pro-B Natriuret Pep pg/mL Total Protein (6.3-8.2) g/dL Albumin (3.5-5.0) g/dL Urine Color Dark Brown Urine Appearance Turbid H (Clear) Urine pH 5.0 (5.0-8.0) Ur Specific [place] 1.021 (1.001-1.035) Urine Protein 1+ H (Negative) Urine Glucose (UA) Negative (Negative) Urine Ketones Negative (Negative) Urine Blood Small H (Negative) Urine Nitrite Negative (Negative) Urine Bilirubin Negative (Negative) Urine Urobilinogen <2.0 (<2.0) mg/dL Ur Leukocyte Esterase Large H (Negative) Urine RBC 86 H (0-5) /hpf Urine WBC >182 H (0-5) /hpf Urine Bacteria Many H (None) /hpf Influenza Type A (PCR) (Not Detectd) Influenza Type B (PCR) (Not Detectd) RSV (PCR) (Not Detectd) SARS-CoV-2 (PCR) (Not Detectd) 05/15/23 Range/Units 13:13 WBC (3.8-10.6) k/uL RBC (3.80-5.40) m/uL Hgb (11.4-16.0) gm/dL Hct (34.0-46.0) % MCV (80.0-100.0) fL MCH (25.0-35.0) pg MCHC (31.0-37.0) g/dL RDW (11.5-15.5) % Plt Count (150-450) k/uL MPV Neutrophils % % Lymphocytes % % Monocytes % % Eosinophils % % Basophils % % Neutrophils # (1.3-7.7) k/uL Lymphocytes # (1.0-4.8) k/uL Monocytes # (0-1.0) k/uL Eosinophils # (0-0.7) k/uL Basophils # (0-0.2) k/uL Hypochromasia PT (10.0-12.5) sec INR (<1.2) APTT (22.0-30.0) sec Sodium (137-145) mmol/L Potassium (3.5-5.1) mmol/L Chloride (98-107) mmol/L Carbon Dioxide (22-30) mmol/L Anion Gap mmol/L BUN (7-17) mg/dL Creatinine (0.52-1.04) mg/dL Est GFR (CKD-EPI)AfAm (>60 ml/min/1.73 sqM) Est GFR (CKD-EPI)NonAf (>60 ml/min/1.73 sqM) Glucose (74-99) mg/dL Plasma Lactic Acid Jelani (0.7-2.0) mmol/L Calcium (8.4-10.2) mg/dL Ionized Calcium Bryce (4.5-5.3) mg/dL Phosphorus (2.5-4.5) mg/dL Magnesium (1.6-2.3) mg/dL Total Bilirubin (0.2-1.3) mg/dL AST (14-36) U/L ALT (4-34) U/L Alkaline Phosphatase (38-126) U/L Troponin I (0.000-0.034) ng/mL NT-Pro-B Natriuret Pep pg/mL Total Protein (6.3-8.2) g/dL Albumin (3.5-5.0) g/dL Urine Color Urine Appearance (Clear) Urine pH (5.0-8.0) Ur Specific [place] (1.001-1.035) Urine Protein (Negative) Urine Glucose (UA) (Negative) Urine Ketones (Negative) Urine Blood (Negative) Urine Nitrite (Negative) Urine Bilirubin (Negative) Urine Urobilinogen (<2.0) mg/dL Ur Leukocyte Esterase (Negative) Urine RBC (0-5) /hpf Urine WBC (0-5) /hpf Urine Bacteria (None) /hpf Influenza Type A (PCR) Not Detected (Not Detectd) Influenza Type B (PCR) Not Detected (Not Detectd) RSV (PCR) Not Detected (Not Detectd) SARS-CoV-2 (PCR) Not Detected (Not Detectd) - EKG Data -: EKG Interpreted by Me Disposition Clinical Impression: Urinary tract infection, AMS (altered mental status), Weakness Disposition: ADMITTED IP TO THIS HOSP Condition: Fair Is patient prescribed a controlled substance at d/c from ED?: No Time of Disposition: 17:20
[2023-05-15 12:51] LABS: Partial Thromboplastin Time 24.1 sec (22.0-30.0); Prothrombin Time 11.1 sec (10.0-12.5)
[2023-05-15 12:58] LABS: Ionized Calcium 5.1 mg/dL (4.5-5.3)
[2023-05-15 13:30] LABS: ALT 26 U/L (4-34); AST 73 U/L (14-36); African American GFR (CKD) >90 (>60 ml/min/1.73 sqM); Albumin 3.4 g/dL (3.5-5.0); Alkaline Phosphatase 226 U/L (38-126); Anion Gap 12 mmol/L; Blood Urea Nitrogen 21 mg/dL (7-17); Calcium 10.1 mg/dL (8.4-10.2); Carbon Dioxide 26 mmol/L (22-30); Chloride 101 mmol/L (98-107); Glucose 112 mg/dL (74-99); Non-African American GFR(CKD) 88 (>60 ml/min/1.73 sqM); Phosphorus 4.1 mg/dL (2.5-4.5); Sodium 139 mmol/L (137-145); Total Bilirubin 1.8 mg/dL (0.2-1.3); Total Protein 7.7 g/dL (6.3-8.2)
[2023-05-15 13:36] LABS: Potassium 4.2 mmol/L (3.5-5.1)
[2023-05-15 13:37] LABS: NT-Pro-B-Type Natriuretic Pept 165 pg/mL
[2023-05-15 16:19] LABS: Appearance,Urine Turbid (Clear); Bacteria,Urine Many /hpf; Bilirubin,Urine Negative (Negative); Blood,Urine Small (Negative); Color,Urine Dark Brown; Glucose,Urine (UA) Negative (Negative); Ketones,Urine Negative (Negative); Leukocyte Esterase,Urine Large (Negative); Nitrite,Urine Negative (Negative); Protein,Urine 1+ (Negative); RBC,Urine 86 /hpf (0-5); Specific Gravity,Urine 1.021 (1.001-1.035); Urobilinogen,Urine <2.0 mg/dL (<2.0); WBC,Urine >182 /hpf (0-5)
[2023-05-15] MEDS ORDERED: ONDANSETRON 4 MG/2 ML VIAL IVP PRN (17:38)
[2023-05-15] MEDS ORDERED: NALOXONE 0.4 MG/ML 1 ML VIAL IV PRN (17:38)
[2023-05-15] MEDS: SODIUM CHLORIDE 0.9% 1,000 ML IV SCH (18:30)
[2023-05-16] MEDS: SODIUM CHLORIDE 0.9% 1,000 ML IV SCH ×4 (03:45→22:10)
[2023-05-16 09:18] LABS: Basophils # (A) 0.07 X 10*3/uL (0.00-0.10); Basophils % (A) 0.8 %; Eosinophils # (A) 0.28 X 10*3/uL (0.04-0.35); Eosinophils % (A) 3.2 %; HCT 31.5 % (37.2-46.3); HGB 9.8 g/dL (12.0-15.0); Lymphocytes # (A) 1.28 X 10*3/uL (0.90-5.00); Lymphocytes % (A) 14.8 %; MCH 27.4 pg (27.0-32.0); MCHC 31.1 g/dL (32.0-37.0); Mean Platelet Volume 9.7 FL (9.5-12.2); Monocytes # (A) 0.71 X 10*3/uL (0.20-1.00); Monocytes % (A) 8.2 %; NRBC Per 100 WBC 0 X 10*3/uL (0.00-0.01); Neutrophils # (A) 6.28 X 10*3/uL (1.80-7.70); Neutrophils % (A) 72.4 %; Platelet Count 303 X 10*3/uL (140-440); RBC 3.58 X 10*6/uL (4.10-5.20); WBC 8.67 X 10*3/uL (4.50-10.00)
[2023-05-16 09:28] LABS: ALT 17 U/L (8-44); AST 24 U/L (13-35); Albumin 2.9 g/dL (3.8-4.9); Albumin/Globulin Ratio 0.85 Ratio (1.60-3.17); Alkaline Phosphatase 97 U/L (41-126); Blood Urea Nitrogen 16.8 mg/dL (9.0-27.0); Calcium 9.4 mg/dL (8.7-10.3); Carbon Dioxide 24.2 mmol/L (21.6-31.8); Chloride 102 mmol/L (96-109); Globulin 3.4 g/dL (1.6-3.3); Glucose 88 mg/dL (70-110); Magnesium 1.8 mg/dL (1.5-2.4); Phosphorus 3.5 mg/dL (2.4-5.1); Potassium 3.9 mmol/L (3.5-5.5); Sodium 138 mmol/L (135-145); Total Bilirubin 0.7 mg/dL (0.3-1.2); Total Protein 6.3 g/dL (6.2-8.2)
[2023-05-16 14:08] VITALS: BMI 16.8
--- NOTE | 2023-05-16 21:03 | P.HPIM ---
History of Present Illness H&P Date: 05/16/23 Chief Complaint: Weakness Patient is a 73-year-old female with known history of CVA/TIA presents to ER with her family due to generalized weakness. Patient has been feeling weak and also occasionally having altered mental status and confusion. Patient is not able to take care of herself due to lack of energy and also difficulty in walking. Otherwise patient denies any fever or chills. Denies any nausea vomiting or abdominal pain. No complaints of chest pain or shortness of breath. No cough or sputum production. No history of recent travel or sick contacts at home. EKG on admission showed sinus rhythm.. Laboratory data showed WBC 13.0 hemoglobin 11.3 and platelets 314 Sodium 139 potassium 4.2 chloride 101 bicarb is 26 BUN 21 and creatinine 0.69 and blood sugar is 112 calcium 10.1 total bili 1.8 and AST 73 ALT 26 and alk phos 226 proBNP 165 albumin 3.4 Urinalysis showed turbid with 1+ protein small blood large leukocyte esterase with elevated RBCs and WBCs. Influenza A, B, RSV, COVID-19 PCR not detected. Review of Systems Constitutional: Patient denies any fever or chills . Patient does have generalized weakness and fatigue and difficulty ambulating. Abdomen: Patient denied any nausea or vomiting or abd. pain Cardiovascular: Patient denies any chest pain or short of breath no palpitations. Respiratory: patient denied any cough . no sputum production. No shortness of breath Neurologic: Patient denied any numbness or tingling or headache. Musculoskeletal: Patient denies any complaints of joint swelling or deformity. Skin: Negative Psychiatric: Negative Endocrine: No heat or cold intolerance. No recent weight gain. Genitourinary: No dysuria or hematuria. All other 14 point ROS negative except the above Past Medical History Past Medical History: CVA/TIA Additional Past Medical History / Comment(s): Skin Cancer right forehead,TIA after surgery. History of Any Multi-Drug Resistant Organisms: None Reported Past Surgical History: Hernia Repair Past Psychological History: No Psychological Hx Reported Smoking Status: Never smoker Past Alcohol Use History: None Reported Past Drug Use History: None Reported - Past Family History Father History Unknown: Yes Medications and Allergies Home Medications Medication Instructions Recorded Confirmed Type No Known Home Medications 05/15/23 05/15/23 History Allergies Allergy/AdvReac Type Severity Reaction Status Date / Time amoxicillin Allergy Rash/Hives Verified 05/15/23 13:21 codeine Allergy Rash/Hives Verified 05/15/23 13:21 Latex, Natural Rubber Allergy Rash/Hives Verified 05/15/23 13:21 Penicillins Allergy Rash/Hives Verified 05/15/23 13:21 Physical Exam Vitals: Vital Signs Temp Pulse Pulse Resp BP BP Pulse Ox 05/16/23 07:00 97.8 F 81 16 92/53 100 05/16/23 02:00 98.1 F 88 16 105/65 98 05/15/23 19:56 98.2 F 77 18 108/69 100 05/15/23 18:32 83 18 117/76 100 05/15/23 14:00 82 15 106/67 97 05/15/23 13:30 78 13 114/71 96 Intake and Output 05/15/23 05/16/23 05/16/23 22:59 06:59 14:59 Intake Total 118 Output Total 200 Balance -200 118 Intake: Oral 118 Output: Urine 200 Other: Voiding Method External Catheter External Catheter External Catheter # Voids 0 300 # Bowel Movements 1 Weight 41.73 kg PHYSICAL EXAMINATION: Patient is lying in the bed comfortably, no acute distress, awake alert and oriented.. HEENT: Normocephalic. Neck is supple. Pupils reactive. Nostrils clear. Oral c avity is moist. Neck reveals no JVD, carotid bruits, or thyromegaly. CHEST EXAMINATION: Trachea is central. Symmetrical expansion. Lung guerra clear to auscultation and percussion. CARDIAC: Normal S1, S2 with no gallops. No murmurs ABDOMEN: Soft. Bowel sounds present. Nontender. No organomegaly. No abdominal bruits. Extremities: reveal no edema. No clubbing or cyanosis Neurologically awake, alert, oriented x2-3. Able to move all extremities. No gross focal neurological deficits. Mild cognitive impairment. Skin: No rash or skin lesions. Psychiatric: Coperative. Nonsuicidal, Musculoskeletal: No joint swelling or deformity. Normal range of motion. Results CBC & Chem 7: 05/16/23 06:05 05/16/23 06:05 Labs: Abnormal Lab Results - Last 24 Hours (Table) 05/15/23 05/15/23 05/16/23 Range/Units 12:26 13:13 06:05 RBC 3.58 L (4.10-5.20) X 10*6/uL Hgb 9.8 L (12.0-15.0) g/dL Hct 31.5 L (37.2-46.3) % MCHC 31.1 L (32.0-37.0) g/dL RDW 15.0 H (11.5-14.5) % Immature Gran # 0.05 H (0.00-0.04) X 10*3/uL BUN 21 H (7-17) mg/dL BUN/Creatinine Ratio (12.00-20.00) Ratio Glucose 112 H (74-99) mg/dL Total Bilirubin 1.8 H (0.2-1.3) mg/dL AST 73 H (14-36) U/L Alkaline Phosphatase 226 H (38-126) U/L Albumin 3.4 L (3.5-5.0) g/dL Globulin (1.6-3.3) g/dL Albumin/Globulin Ratio (1.60-3.17) Ratio Urine Appearance Turbid H (Clear) Urine Protein 1+ H (Negative) Urine Blood Small H (Negative) Ur Leukocyte Esterase Large H (Negative) Urine RBC 86 H (0-5) /hpf Urine WBC >182 H (0-5) /hpf Urine Bacteria Many H (None) /hpf 05/16/23 Range/Units 06:05 RBC (4.10-5.20) X 10*6/uL Hgb (12.0-15.0) g/dL Hct (37.2-46.3) % MCHC (32.0-37.0) g/dL RDW (11.5-14.5) % Immature Gran # (0.00-0.04) X 10*3/uL BUN (7-17) mg/dL BUN/Creatinine Ratio 28.00 H (12.00-20.00) Ratio Glucose (74-99) mg/dL Total Bilirubin (0.2-1.3) mg/dL AST (14-36) U/L Alkaline Phosphatase (38-126) U/L Albumin 2.9 L (3.5-5.0) g/dL Globulin 3.4 H (1.6-3.3) g/dL Albumin/Globulin Ratio 0.85 L (1.60-3.17) Ratio Urine Appearance (Clear) Urine Protein (Negative) Urine Blood (Negative) Ur Leukocyte Esterase (Negative) Urine RBC (0-5) /hpf Urine WBC (0-5) /hpf Urine Bacteria (None) /hpf Thrombosis Risk Factor Assmnt - DVT/VTE Prophylaxis DVT/VTE Prophylaxis: Pharmacologic Prophylaxis ordered Assessment and Plan Assessment: Acute urinary tract infection Generalized weakness and difficulty ambulating and taking care of herself at home. Elevated liver enzymes. Improved now Mild cognitive impairment Normocytic anemia GI and DVT prophylaxis with Pepcid and heparin subcu Plan: Patient will be continued on IV hydration and antibiotics ceftriaxone. Follow- up urine culture report. Continue to monitor renal function and liver enzymes. PT OT to be consulted and possibly need rehab transfer. Continue to follow closely. Time with Patient: Greater than 30
[2023-05-16] MEDS: HEPARIN SODIUM,PORCINE 5,000 UNIT/ML 1 ML VIAL SQ SCH (22:10)
[2023-05-17 08:39] LABS: HGB 9.5 g/dL (12.0-15.0); RBC 3.46 X 10*6/uL (4.10-5.20); WBC 7.26 X 10*3/uL (4.50-10.00)
[2023-05-17 08:40] LABS: Basophils # (A) 0.06 X 10*3/uL (0.00-0.10); Basophils % (A) 0.8 %; Eosinophils % (A) 4.1 %; Lymphocytes # (A) 1.15 X 10*3/uL (0.90-5.00); Lymphocytes % (A) 15.8 %; MCH 27.5 pg (27.0-32.0); MCHC 30.6 g/dL (32.0-37.0); MCV 89.6 FL (80.0-97.0); Mean Platelet Volume 9.7 FL (9.5-12.2); Monocytes # (A) 0.74 X 10*3/uL (0.20-1.00); Monocytes % (A) 10.2 %; NRBC Per 100 WBC 0 X 10*3/uL (0.00-0.01); Neutrophils # (A) 4.97 X 10*3/uL (1.80-7.70); Neutrophils % (A) 68.5 %; Platelet Count 244 X 10*3/uL (140-440); RDW 15.1 % (11.5-14.5)
[2023-05-17] MEDS: FAMOTIDINE 20 MG TAB PO SCH (08:40)
[2023-05-17] MEDS: HEPARIN SODIUM,PORCINE 5,000 UNIT/ML 1 ML VIAL SQ SCH ×2 (08:41→20:33)
[2023-05-17 08:59] LABS: Blood Urea Nitrogen 12.5 mg/dL (9.0-27.0); Calcium 8.8 mg/dL (8.7-10.3); Carbon Dioxide 24.6 mmol/L (21.6-31.8); Chloride 105 mmol/L (96-109); Glucose 105 mg/dL (70-110); Potassium 3.7 mmol/L (3.5-5.5); Sodium 139 mmol/L (135-145)
[2023-05-17] MEDS: SODIUM CHLORIDE 0.9% 1,000 ML IV SCH (18:21)
--- NOTE | 2023-05-17 18:49 | P.PN ---
Subjective Progress Note Date: 05/17/23 Patient is a 73-year-old female with known history of CVA/TIA presents to ER with her family due to generalized weakness. Patient has been feeling weak and also occasionally having altered mental status and confusion. Patient is not able to take care of herself due to lack of energy and also difficulty in walking. Otherwise patient denies any fever or chills. Denies any nausea vomiting or abdominal pain. No complaints of chest pain or shortness of breath. No cough or sputum production. No history of recent travel or sick contacts at home. EKG on admission showed sinus rhythm.. Laboratory data showed WBC 13.0 hemoglobin 11.3 and platelets 314 Sodium 139 potassium 4.2 chloride 101 bicarb is 26 BUN 21 and creatinine 0.69 and blood sugar is 112 calcium 10.1 total bili 1.8 and AST 73 ALT 26 and alk phos 226 proBNP 165 albumin 3.4 Urinalysis showed turbid with 1+ protein small blood large leukocyte esterase with elevated RBCs and WBCs. Influenza A, B, RSV, COVID-19 PCR not detected. 05/17/2023 and [place] . Patient is seen in follow-up today currently maintained on ceftriaxone while aw aiting for cultures. Urine culture was not initially sent and will send which is pending at this time. white count has normalized and patient has been afebrile.Patient with significant weakness being evaluated by physical therapy recommending ECF and patient is agreeable. Patient would like to go to [facility] with social work following working on discharge planning. Encouraged oral intake and increased activity as tolerated. Patient continued with wound care to the coccyx region and recommend offloading frequently and getting up out of the bed more often. Review of systems: Constitutional: No reports of fatigue, fever, or chills Cardiovascular: No reports of chest pain or palpitations Respiratory: No reports of shortness of breath or cough GI: No reports of nausea, vomiting, or diarrhea : No reports of dysuria or retention Neurovascular: reports of generalized weakness or numbness All medications have been reviewed PHYSICAL EXAMINATION: Patient is sitting up in the bed comfortably, no acute distress, awake alert and oriented.. thin built, elderly appearing HEENT: Normocephalic. Neck is supple. Pupils reactive. Nostrils clear. Oral cavity is moist. Neck reveals no JVD, carotid bruits, or thyromegaly. CHEST EXAMINATION: Trachea is central. Symmetrical expansion. Lung guerra clear to auscultation and percussion. CARDIAC: Normal S1, S2 with no gallops. No murmurs ABDOMEN: Soft. Bowel sounds present. Nontender. No organomegaly. No abdominal bruits. Extremities: reveal no edema. No clubbing or cyanosis Neurologically awake, alert, oriented x2-3. Able to move all extremities. No gross focal neurological deficits. Mild cognitive impairment. Skin: No rash or skin lesions. stage II pressure ulcer noted to the coccyx region Psychiatric: Cooperative. Non-suicidal, Musculoskeletal: No joint swelling or deformity. Normal range of motion. muscle wasting noted Assessment: Acute urinary tract infection, present on admission Generalized weakness and difficulty ambulating and taking care of herself at home. Elevated liver enzymes. Improved now Mild cognitive impairment Normocytic anemia moderate protein calorie malnutrition with BMI of 16.8 stage II pressure ulcer of the coccyx region, present on admission GI and DVT prophylaxis with Pepcid and heparin subcu full code Plan: Patient will be continued on IV hydration and antibiotics In the form of ce ftriaxone. urine culture was not previously sent and will send on. Currently awaiting cultures at this time. white count has normalized and renal functions along with liver enzymes are within normal limits Encouraged oral intake and increased activity as tolerated Continue local wound care to the coccyx region as there is a steady pressure ulcer noted in present on admission. Continue zinc paste and OptiForm along with offloading to that area with frequent position changes PT OT following and working on possible ECF. Misty is reviewing with social work following Possible discharge planning in the next 24-48 hours The impression and plan of care has been dictated by Rhona Goodman, Nurse Practitioner as directed. Dr. Rosi MD I have performed a history and examination and MDM of this patient, discussed the same with the dictator, and agree with the dictator's assessment and plan as written ,documented as a scribe. Based on total visit time, I have performed more than 50% of the visit. Objective - Vital Signs Vital signs: Vital Signs Temp 98.6 F 05/17/23 13:52 Pulse 66 05/17/23 13:52 Resp 16 05/17/23 13:52 BP 123/69 05/17/23 13:52 Pulse Ox 93 L 05/17/23 13:52 FiO2 Intake & Output 05/16/23 05/17/23 05/17/23 18:59 06:59 18:59 Intake Total 295 180 Output Total 54 500 Balance 241 -320 Weight 41.73 kg Intake: Oral 295 180 Output: Post Void Residual 54 500 Other: Voiding Method External Catheter External Catheter External Catheter # Voids 300 0 1 # Bowel Movements 1 0 - Labs CBC & Chem 7: 05/17/23 06:05 05/17/23 06:05 Labs: Abnormal Lab Results - Last 24 Hours (Table) 05/17/23 05/17/23 Range/Units 06:05 06:05 RBC 3.46 L (4.10-5.20) X 10*6/uL Hgb 9.5 L (12.0-15.0) g/dL Hct 31.0 L (37.2-46.3) % MCHC 30.6 L (32.0-37.0) g/dL RDW 15.1 H (11.5-14.5) % Creatinine 0.5 L (0.6-1.5) mg/dL BUN/Creatinine Ratio 25.00 H (12.00-20.00) Ratio
[2023-05-18] MEDS: FAMOTIDINE 20 MG TAB PO SCH (08:51)
[2023-05-18] MEDS: HEPARIN SODIUM,PORCINE 5,000 UNIT/ML 1 ML VIAL SQ SCH ×2 (08:51→19:59)
--- NOTE | 2023-05-18 14:23 | P.PN ---
Subjective Progress Note Date: 05/18/23 Patient is a 73-year-old female with known history of CVA/TIA presents to ER with her family due to generalized weakness. Patient has been feeling weak and also occasionally having altered mental status and confusion. Patient is not able to take care of herself due to lack of energy and also difficulty in walking. Otherwise patient denies any fever or chills. Denies any nausea vomiting or abdominal pain. No complaints of chest pain or shortness of breath. No cough or sputum production. No history of recent travel or sick contacts at home. EKG on admission showed sinus rhythm.. Laboratory data showed WBC 13.0 hemoglobin 11.3 and platelets 314 Sodium 139 potassium 4.2 chloride 101 bicarb is 26 BUN 21 and creatinine 0.69 and blood sugar is 112 calcium 10.1 total bili 1.8 and AST 73 ALT 26 and alk phos 226 proBNP 165 albumin 3.4 Urinalysis showed turbid with 1+ protein small blood large leukocyte esterase with elevated RBCs and WBCs. Influenza A, B, RSV, COVID-19 PCR not detected. 05/17/2023 . Patient is seen in follow-up today currently maintained on ceftriaxone while awaiting for cultures. Urine culture was not initially sent and will send which is pending at this time. white count has normalized and patient has been afebrile.Patient with significant weakness being evaluated by physical therapy recommending ECF and patient is agreeable. Patient would like to go to [facility] with social work following working on discharge planning. Encouraged oral intake and increased activity as tolerated. Patient continued with wound care to the coccyx region and recommend offloading frequently and getting up out of the bed more often. 05/18/2023 Patient is seen in follow-up this morning continues on antibiotics in the form of ceftriaxone for acute urinary tract infection, present on admission. Urine culture has been received although pending at this time and awaiting finalized cultures. Patient with significant weakness working on going to [facility] and awaiting insurance authorization. Case management/social work following and working on discharge planning. Patient is currently afebrile with no reports of chest pain or shortness of breath. Patient reports to tolerating diet and reports has been increasing her oral intake. Recommend PT/OT therapy daily. Review of systems: Constitutional: No reports of fatigue, fever, or chills Cardiovascular: No reports of chest pain or palpitations Respiratory: No reports of shortness of breath or cough GI: No reports of nausea, vomiting, or diarrhea : No reports of dysuria or retention Neurovascular: reports of generalized weakness or numbness All medications have been reviewed PHYSICAL EXAMINATION: Patient is sitting up in the bed , awake alert and oriented.. thin built, elderly appearing HEENT: Normocephalic. Neck is supple. Pupils reactive. Nostrils clear. Oral cavity is moist. Neck reveals no JVD, carotid bruits, or thyromegaly. CHEST EXAMINATION: Trachea is central. Symmetrical expansion. Lung guerra clear to auscultation and percussion. CARDIAC: Normal S1, S2 with no gallops. No murmurs ABDOMEN: Soft. Thin built, cachectic Bowel sounds present. Nontender. No organomegaly. No abdominal bruits. Extremities: reveal no edema. No clubbing or cyanosis, significant muscle wasting noted of the upper and lower extremities and chest and clavicle area Neurologically awake, alert, oriented x2-3. Able to move all extremities. No gross focal neurological deficits. Mild cognitive impairment. Skin: No rash or skin lesions. stage II pressure ulcer noted to the coccyx region Psychiatric: Cooperative. Non-suicidal Musculoskeletal: No joint swelling or deformity. Normal range of motion. muscle wasting noted Assessment: Acute urinary tract infection, present on admission Generalized weakness and difficulty ambulating and taking care of herself at home. Elevated liver enzymes. Improved now Mild cognitive impairment Normocytic anemia moderate protein calorie malnutrition with BMI of 16.8 stage II pressure ulcer of the coccyx region, present on admission GI and DVT prophylaxis with Pepcid and heparin subcu full code Plan: Patient will be continued on IV hydration and antibiotics In the form of ceftriaxone. urine culture has been received although not resulted as of yet white count has normalized and renal functions along with liver enzymes are within normal limits Encouraged oral intake and increased activity as tolerated. Patient reports she has been eating a little better Continue local wound care to the coccyx region as there is a stage II pressure ulcer noted in present on admission. Continue zinc paste and OptiForm along with offloading to that area with frequent position changes PT OT following and working on possible ECF. Misty is reviewing with social work following and awaiting insurance authorization. Given the holiday weekend, most likely no discharge until Sunday The impression and plan of care has been dictated by Rhona Goodman, Nurse Practitioner as directed. Dr. Rosi MD I have performed a history and examination and MDM of this patient, discussed the same with the dictator, and agree with the dictator's assessment and plan as written ,documented as a scribe. Based on total visit time, I have performed more than 50% of the visit. Objective - Vital Signs Vital signs: Vital Signs Temp 97.6 F 05/18/23 07:00 Pulse 83 05/18/23 07:00 Resp 18 05/18/23 07:00 BP 112/71 05/18/23 07:00 Pulse Ox 99 05/18/23 07:00 FiO2 Intake & Output 05/17/23 05/18/23 05/18/23 18:59 06:59 18:59 Intake Total 180 500 Output Total 500 Balance -320 500 Intake: Oral 180 500 Output: Post Void Residual 500 Other: Voiding Method External Catheter External Catheter External Catheter # Voids 1 1 # Bowel Movements 1 - Labs CBC & Chem 7: 05/17/23 06:05 05/17/23 06:05
[2023-05-18] MEDS: SODIUM CHLORIDE 0.9% 1,000 ML IV SCH (15:31)
[2023-05-19] MEDS: SODIUM CHLORIDE 0.9% 1,000 ML IV SCH (08:42)
[2023-05-19] MEDS: FAMOTIDINE 20 MG TAB PO SCH (08:42)
[2023-05-19] MEDS: HEPARIN SODIUM,PORCINE 5,000 UNIT/ML 1 ML VIAL SQ SCH ×2 (08:42→20:32)
--- NOTE | 2023-05-19 21:53 | PN ---
PROGRESS NOTE DATE OF SERVICE: 05/19/2023 SUBJECTIVE: This is a 73-year-old woman who was admitted with UTI, infection, change in mental status, also had significant malnutrition, weakness. ECF rehab is being planned. OBJECTIVE: VITAL SIGNS: Pulse is 76, blood pressure 116/73, and respirations 16. CHEST: Scattered rhonchi. ABDOMEN: Soft. NERVOUS SYSTEM: Diffusely weak. LABORATORY DATA: Reviewed. ASSESSMENT: 1. Acute UTI, present on admission. 2. Generalized weakness and difficulty in ambulation, gait dysfunction. 3. Elevated liver enzymes. 4. Mild cognitive impairment. 5. Orthostatic anemia. 6. Moderate protein-calorie malnutrition. 7. Stage II pressure ulcer. 8. Multiple complex medical issues. RECOMMENDATIONS: Recommended to continue current management and continue symptomatic treatment. Continue with the antibiotics and PT/OT evaluation, possible ECF rehab. Further recommendations to follow. MMODL / IJN: [id number] /
[2023-05-20] MEDS: SODIUM CHLORIDE 0.9% 1,000 ML IV SCH (06:46)
[2023-05-20] MEDS: FAMOTIDINE 20 MG TAB PO SCH (09:04)
[2023-05-20] MEDS: HEPARIN SODIUM,PORCINE 5,000 UNIT/ML 1 ML VIAL SQ SCH ×2 (09:04→19:57)
--- NOTE | 2023-05-20 12:35 | PN ---
PROGRESS NOTE DATE OF SERVICE: 05/20/2023 SUBJECTIVE: This 73-year-old woman is admitted for UTI and multiple medical problems, is being closely monitored. No chest pain, no palpitation, no Rehab is planned on Sunday. OBJECTIVE: VITAL SIGNS: Pulse is 83, blood pressure 113/80, respirations 16. CHEST: Few scattered rhonchi. ABDOMEN: Soft. NERVOUS SYSTEM: Diffusely weak. LABORATORY DATA: Hemoglobin 9.5. ASSESSMENT: 1. Acute UTI, present on admission. 2. Generalized weakness and difficulty in ambulation, gait dysfunction. 3. Elevated liver enzymes. 4. Alcohol impairment. 5. Anemia. 6. Moderate protein-calorie malnutrition. 7. Stage II pressure ulcer. 8. Multiple complex medical issues. 9. Full code. RECOMMENDATIONS: Recommended to continue current management, continue symptomatic treatment, recommended repeat labs. Monitor liver functions and further recommendations to follow. MMLATHAL / IJN: [id number] / MTDD
[2023-05-21] MEDS: ACETAMINOPHEN TAB 325 MG TAB PO PRN ×2 (02:20→23:50)
[2023-05-21] MEDS: SODIUM CHLORIDE 0.9% 1,000 ML IV SCH ×2 (02:22→21:00)
[2023-05-21] MEDS: FAMOTIDINE 20 MG TAB PO SCH (08:15)
[2023-05-21] MEDS: HEPARIN SODIUM,PORCINE 5,000 UNIT/ML 1 ML VIAL SQ SCH ×2 (08:15→20:59)
[2023-05-21 09:00] LABS: HCT 31.2 % (37.2-46.3); HGB 9.5 g/dL (12.0-15.0); MCH 27.4 pg (27.0-32.0); MCHC 30.4 g/dL (32.0-37.0); MCV 89.9 FL (80.0-97.0); Mean Platelet Volume 9.7 FL (9.5-12.2); NRBC Per 100 WBC 0 X 10*3/uL (0.00-0.01); Platelet Count 235 X 10*3/uL (140-440); RBC 3.47 X 10*6/uL (4.10-5.20); RDW 15.3 % (11.5-14.5); WBC 7.86 X 10*3/uL (4.50-10.00)
[2023-05-21 09:01] LABS: Basophils # (A) 0.05 X 10*3/uL (0.00-0.10); Basophils % (A) 0.6 %; Eosinophils # (A) 0.42 X 10*3/uL (0.04-0.35); Eosinophils % (A) 5.3 %; Lymphocytes # (A) 1.19 X 10*3/uL (0.90-5.00); Lymphocytes % (A) 15.1 %; Monocytes # (A) 0.81 X 10*3/uL (0.20-1.00); Monocytes % (A) 10.3 %; Neutrophils # (A) 5.36 X 10*3/uL (1.80-7.70); Neutrophils % (A) 68.3 %
[2023-05-21 09:13] LABS: ALT 9 U/L (8-44); AST 18 U/L (13-35); Albumin 2.7 g/dL (3.8-4.9); Albumin/Globulin Ratio 0.93 Ratio (1.60-3.17); Alkaline Phosphatase 74 U/L (41-126); Blood Urea Nitrogen 6.3 mg/dL (9.0-27.0); Calcium 9.3 mg/dL (8.7-10.3); Carbon Dioxide 26.8 mmol/L (21.6-31.8); Chloride 105 mmol/L (96-109); Globulin 2.9 g/dL (1.6-3.3); Glucose 105 mg/dL (70-110); Sodium 140 mmol/L (135-145); Total Bilirubin 0.4 mg/dL (0.3-1.2); Total Protein 5.6 g/dL (6.2-8.2)
[2023-05-21] MEDS ORDERED: ERTAPENEM 1 GM in SODIUM CHLORIDE 0.9% 50 ML IVPB SCH ×2 (16:00→22:00)
[2023-05-21 21:24] LABS: Appearance,Urine Clear (Clear); Bacteria,Urine Many /hpf; Bilirubin,Urine Negative (Negative); Blood,Urine Negative (Negative); Color,Urine Light Yellow; Glucose,Urine (UA) Negative (Negative); Ketones,Urine Trace (Negative); Leukocyte Esterase,Urine Large (Negative); Nitrite,Urine Negative (Negative); Protein,Urine Negative (Negative); RBC,Urine 4 /hpf (0-5); Specific Gravity,Urine 1.017 (1.001-1.035); Squamous Epithelial Cell,Urine 1 /hpf (0-4); Urobilinogen,Urine <2.0 mg/dL (<2.0); WBC,Urine 30 /hpf (0-5)
--- NOTE | 2023-05-21 21:41 | PN ---
PROGRESS NOTE DATE OF SERVICE: 05/21/2023 SUBJECTIVE: This 73-year-old woman was admitted with UTI and multiple other medical problems, is awaiting ECF placement. No chest pain, no palpitations, no fever. OBJECTIVE: VITAL SIGNS: Pulse 70, blood pressure ntd, respirations 15. CHEST: Clear to auscultation. CARDIOVASCULAR: S1, S2. ABDOMEN: Soft. NERVOUS SYSTEM: Nonfocal. LABORATORY DATA: Hemoglobin 9.5, other labs are noted. ASSESSMENT: 1. Acute urinary tract infection with ESBL E coli. 2. Generalized weakness and difficulty in ambulation and gait dysfunction. 3. Elevated liver enzymes. 4. Anemia. 5. Moderate protein-calorie malnutrition. 6. Stage II pressure ulcer. 7. Multiple complex medical issues. 8. Full code. RECOMMENDATIONS: Recommended to continue current management, continue symptomatic treatment. I will obtain infectious disease evaluation and continue to monitor. PT, OT evaluation, possible ECF rehab. Further recommendations to follow. MMODL / IJN: [id number] / MTDWilmer
--- NOTE | 2023-05-22 07:00 | P.CONS ---
History of Present Illness - Reason for Consult Consult date: 05/21/23 ESBL E. coli Requesting physician: Tha Jarrell - Chief Complaint Weakness mental status changes burning of urine on admission - History of Present Illness Patient is a 73-year-old female with a past medical history significant for CVA TIA did have a history of skin cancer to the right forehead patient presenting to the hospital on 05/15/2023 for evaluation of weakness and apparently the patient has some mental status changes patient denies having any fever or any chills no headache or URI symptoms no chest pain shortness of breath or cough no nausea vomiting no abdominal pain or diarrhea patient mention to have some burning of urine but no suprapubic or flank pain patient on presentation the hospital did have a white count of 13,000 white count subseque ntly has normalized creatinine was normal patient did have a positive UA with large leukocyte esterase more than 182 WBC and many bacteria urine culture has been finalized 05/20/2023 with ESBL E. coli infectious disease was consulted this afternoon for positive urine culture. Patient at time of evaluation denies having any fever or any chills did mention her urinary symptoms has improved and the patient is feeling better mention she is going to the [facility] tomorrow Review of Systems Positive point and negatives has been mentioned in the HPI, complete review of systems was performed and all other systems are negative Past Medical History Past Medical History: CVA/TIA Additional Past Medical History / Comment(s): Skin Cancer right forehead,TIA after surgery. History of Any Multi-Drug Resistant Organisms: None Reported Past Surgical History: Hernia Repair Past Psychological History: No Psychological Hx Reported Smoking Status: Never smoker Past Alcohol Use History: None Reported Past Drug Use History: None Reported - Past Family History Father History Unknown: Yes Medications and Allergies Home Medications Medication Instructions Recorded Confirmed Type Acetaminophen Tab [Tylenol] 650 mg PO Q6HR PRN tab 05/22/23 Rx Famotidine [Pepcid] 20 mg PO DAILY tab 05/22/23 Rx Folic Acid 1 mg PO DAILY #30 tablet 05/22/23 Rx Heparin Sodium,Porcine (1 ml) 5,000 unit SQ Q12HR each 05/22/23 Rx [Heparin Sodium] Multivitamin [Multivitamins Adult 1 each PO DAILY #30 tab 05/22/23 Rx Gummies] Thiamine [Vitamin B-1] 100 mg PO DAILY #30 tablet 05/22/23 Rx Allergies Allergy/AdvReac Type Severity Reaction Status Date / Time amoxicillin Allergy Rash/Hives Verified 05/15/23 13:21 codeine Allergy Rash/Hives Verified 05/15/23 13:21 Latex, Natural Rubber Allergy Rash/Hives Verified 05/15/23 13:21 Penicillins Allergy Rash/Hives Verified 05/15/23 13:21 Physical Exam Vitals: Vital Signs Temp Pulse Resp BP BP Pulse Ox 05/21/23 08:00 70 15 05/21/23 07:00 97.7 F 70 15 126/76 97 05/21/23 03:49 98.1 F 77 16 124/71 98 05/21/23 02:57 83 16 05/20/23 20:00 98.4 F 83 16 112/72 98 05/20/23 19:57 83 16 05/20/23 14:43 97.5 F L 94 16 105/63 99 Intake and Output 05/20/23 05/21/23 05/21/23 22:59 06:59 14:59 Intake Total 816 Output Total 650 650 Balance -650 166 Intake: Oral 816 Output: Urine 650 650 Other: Voiding Method External Catheter External Catheter External Catheter # Voids 1 # Bowel Movements 0 GENERAL DESCRIPTION: Elderly female lying in bed, no distress. No tachypnea or accessory muscle of respiration use. HEENT: Shows Pallor , no scleral icterus. Oral mucous membrane is dry. No pharyngeal erythema or thrush NECK: Trachea central, no thyromegaly. LUNGS: Unlabored breathing. Clear to auscultation anteriorly. No wheeze or crackle. HEART: S1, S2, regular rate and rhythm. No loud murmur ABDOMEN: Soft, no tenderness , guarding or rigidity, no organomegaly EXTREMITIES: No edema of feet. SKIN: No rash, no masses palpable. NEUROLOGICAL: The patient is awake, alert, oriented x3, mood and affect normal. Results CBC & Chem 7: 05/22/23 05:41 05/22/23 05:41 Labs: Abnormal Lab Results - Last 24 Hours (Table) 05/21/23 05/21/23 Range/Units 05:37 05:37 RBC 3.47 L (4.10-5.20) X 10*6/uL Hgb 9.5 L (12.0-15.0) g/dL Hct 31.2 L (37.2-46.3) % MCHC 30.4 L (32.0-37.0) g/dL RDW 15.3 H (11.5-14.5) % Eosinophils # 0.42 H (0.04-0.35) X 10*3/uL BUN 6.3 L (9.0-27.0) mg/dL Creatinine 0.5 L (0.6-1.5) mg/dL Total Protein 5.6 L (6.2-8.2) g/dL Albumin 2.7 L (3.8-4.9) g/dL Albumin/Globulin Ratio 0.93 L (1.60-3.17) Ratio Assessment and Plan (1) Infection due to ESBL-producing Escherichia coli Current Visit: Yes Status: Acute Code(s): A49.8 - OTHER BACTERIAL INFECTIONS OF UNSPECIFIED SITE; Z16.12 - EXTENDED SPECTRUM BETA LACTAMASE (ESBL) RESISTANCE SNOMED Code(s): 646287508 (2) Urinary tract infection Current Visit: Yes Status: Acute Code(s): N39.0 - URINARY TRACT INFECTION, SITE NOT SPECIFIED SNOMED Code(s): 24101045 Plan: 1-patient with a positive urine culture with ESBL E. coli this patient presented to the hospital with weakness mental status changes and did have some urinary symptoms did have a positive UA and elevated white count patient has shown clinical improvement without getting treatment for this ESBL E. coli with question of possible contamination versus true pathogen 2-we will repeat her UA nursing staff has been advised to get a clean-catch sample straight cath if needed 3-for now we will switch antibiotic to Invanz 1 g daily while waiting for repeat UA to be finalized We will follow on clinical condition and cultures to further adjust medication if needed Thank you for this consultation we will follow the patient along with you Dictation was produced using [employer] dictation software. please excuse any grammatical, word or spelling errors. Time with Patient: Greater than 30
[2023-05-22 07:28] VITALS: RESP 14; TEMP 97.9
[2023-05-22 09:18] LABS: Blood Urea Nitrogen 7.9 mg/dL (9.0-27.0); Glucose 95 mg/dL (70-110)
[2023-05-22 09:19] LABS: Calcium 9.1 mg/dL (8.7-10.3); Carbon Dioxide 25.9 mmol/L (21.6-31.8); Chloride 105 mmol/L (96-109); Sodium 139 mmol/L (135-145)
[2023-05-22 09:21] LABS: Basophils # (A) 0.03 X 10*3/uL (0.00-0.10); Basophils % (A) 0.4 %; Eosinophils # (A) 0.39 X 10*3/uL (0.04-0.35); Eosinophils % (A) 5.7 %; HGB 9.9 g/dL (12.0-15.0); Lymphocytes # (A) 1.53 X 10*3/uL (0.90-5.00); Lymphocytes % (A) 22.3 %; MCH 27.7 pg (27.0-32.0); MCHC 30.9 g/dL (32.0-37.0); MCV 89.4 FL (80.0-97.0); Mean Platelet Volume 10.2 FL (9.5-12.2); Monocytes # (A) 0.77 X 10*3/uL (0.20-1.00); Monocytes % (A) 11.2 %; NRBC Per 100 WBC 0 X 10*3/uL (0.00-0.01); Neutrophils % (A) 59.8 %; Platelet Count 252 X 10*3/uL (140-440); RBC 3.58 X 10*6/uL (4.10-5.20); RDW 15.1 % (11.5-14.5); WBC 6.86 X 10*3/uL (4.50-10.00)
[2023-05-22] MEDS: FAMOTIDINE 20 MG TAB PO SCH (10:04)
[2023-05-22] MEDS: HEPARIN SODIUM,PORCINE 5,000 UNIT/ML 1 ML VIAL SQ SCH (10:04)
--- NOTE | 2023-05-22 10:49 | P.DS ---
Providers Date of admission: 05/15/23 17:38 Expected date of discharge: 05/22/23 Attending physician: Tha Jarrell Consults: 05/21/23 13:55 Consult Physician Routine Consulting Provider: Zoë Vences Consult Reason/Comments: esbl ecoli Do you want consulting provider notified?: Yes Primary care physician: Celso Grady [facility] Course: Final diagnosis Acute urinary tract infection, present on admission with E. coli ESBL finalizing on the cultures Generalized weakness and difficulty ambulating and taking care of herself at home. Elevated liver enzymes. Improved now Mild cognitive impairment Normocytic anemia moderate protein calorie malnutrition with BMI of 16.8 stage II pressure ulcer of the coccyx region, present on admission GI and DVT prophylaxis with Pepcid and heparin subcu full code Discharge disposition Patient is being discharged in a stable condition with guarded prognosis to [facility]. Patient will follow-up with Dr. Grady in the outpatient setting upon discharge. Patient is to continue with IV antibiotics in the form of Invanz for 1 additional day on 05/23/2023 and close outpatient follow-up with infectious disease as scheduled. Total time taken is greater than 35 minutes. Hospital course This is a 73-year-old female who was recently admitted with generalized weakness with altered mentation and concerns for acute urinary tract infection. Urine cultures finalized showing ESBL with E. coli and infectious disease following an antibiotics transition from ceftriaxone to Invanz. Patient to receive another few doses of Invanz to complete the course. Patient with overall weakness evaluated by physical therapy recommending ECF and patient is agreeable. Patient has been accepted at [facility] and underwent peer to peer with insurance provider and was approved for ECF. Please refer to the consultation notes for further HPI. Currently no reports of chest pain, shortness of breath, or palpitations. Patient is afebrile. No reports of nausea or vomiting and patient is tolerating diet. Patient will be going to [facility] today. Guarded prognosis Physical exam: Gen: This is a 73-year-old female who is awake, alert and oriented 3, thin built, elderly appearing, cachectic, muscle wasting noted HEENT: Head is atraumatic, normocephalic. Pupils equal, round. Sclerae is anicteric. NECK: Supple. No JVD. No lymphadenopathy. No thyromegaly. LUNGS: Clear to auscultation. No wheezes or rhonchi. No intercostal retractions. HEART: Regular rate and rhythm. No murmur. ABDOMEN: Soft. Thin, scaphoid, Bowel sounds are present. No masses. No tenderness. EXTREMITIES: No pedal edema. No calf tenderness. NEUROLOGICAL: Patient is awake, alert and oriented x3. Cranial nerves 2 through 12 are grossly intact. Diffusely weak Please refer to medication reconciliation sheet for a list of medications. The impression and plan of care has been dictated by Rhona Goodman, Nurse Practitioner as directed. Dr. Wesly MD I have performed a history and examination and MDM of this patient, discussed the same with the dictator, and agree with the dictator's assessment and plan as written ,documented as a scribe. Based on total visit time, I have performed more than 50% of the visit. Patient Condition at Discharge: Fair Plan - Discharge Summary New Discharge Prescriptions: New Folic Acid 1 mg PO DAILY #30 tablet Famotidine [Pepcid] 20 mg PO DAILY tab Acetaminophen Tab [Tylenol] 650 mg PO Q6HR PRN tab PRN Reason: Mild Pain Or Fever > 100.5 Thiamine [Vitamin B-1] 100 mg PO DAILY #30 tablet Heparin Sodium,Porcine (1 ml) [Heparin Sodium] 5,000 unit SQ Q12HR each Multivitamin [Multivitamins Adult Gummies] 1 each PO DAILY #30 tab Discharge Medication List Acetaminophen Tab [Tylenol] 650 mg PO Q6HR PRN tab 05/22/23 [Rx] Famotidine [Pepcid] 20 mg PO DAILY tab 05/22/23 [Rx] Folic Acid 1 mg PO DAILY #30 tablet 05/22/23 [Rx] Heparin Sodium,Porcine (1 ml) [Heparin Sodium] 5,000 unit SQ Q12HR each 05/22/23 [Rx] Multivitamin [Multivitamins Adult Gummies] 1 each PO DAILY #30 tab 05/22/23 [Rx] Thiamine [Vitamin B-1] 100 mg PO DAILY #30 tablet 05/22/23 [Rx] Follow up Appointment(s)/Referral(s): Celso Grady MD [Primary Care Provider] - 1-2 days Zoë Vences MD [STAFF PHYSICIAN] - 1 Week Activity/Diet/Wound Care/Special Instructions: Patient is going to [facility] [place] [facility] as tolerated Continue with antibiotics per infectious disease Continue regular diet Discharge Disposition: TRANSFER TO SNF/ECF
--- NOTE | 2023-05-22 12:48 | P.PN ---
Subjective Progress Note Date: 05/22/23 Principal diagnosis: Reason for follow-up is ESBL E. coli UTI Patient is a 73-year-old female with a past medical history significant for CVA TIA did have a history of skin cancer to the right forehead patient presenting to the hospital on 05/15/2023 for evaluation of weakness and apparently the patient has some mental status changes, did have some urinary symptoms of burning elevated white count diagnosed with UTI treated with Rocephin subsequent urine cultures came back positive for ESBL E. coli prompting this infectious disease consultation On today's evaluation that is 05/22/2023, the patient denies having any fever or any chills patient is breathing comfortably on room air denies any chest pain shortness of breath or cough no nausea vomiting no abdominal pain and urinary symptoms has improved Patient did have a white count of 6.86 creatinine 0 point 5 repeat UA mildly positive but better than the previous UA Objective - Vital Signs Vital signs: Vital Signs Temp 97.9 F 05/22/23 07:00 Pulse 72 05/22/23 07:00 Resp 14 05/22/23 07:00 BP 123/75 05/22/23 07:00 Pulse Ox 97 05/22/23 07:00 FiO2 Intake & Output 05/21/23 05/22/23 05/22/23 18:59 06:59 18:59 Intake Total 816 Output Total 1000 575 Balance -184 -575 Intake: Oral 816 Output: Urine 1000 575 Other: Voiding Method External Catheter External Catheter External Catheter - Exam GENERAL DESCRIPTION: An elderly female lying in bed in no distress RESPIRATORY SYSTEM: Unlabored breathing , decreased breath sounds at bases HEART: S1 S2 regular rate and rhythm , ABDOMEN: Soft , no tenderness EXTREMITIES: No edema feet - Labs CBC & Chem 7: 05/22/23 05:41 05/22/23 05:41 Labs: Abnormal Lab Results - Last 24 Hours (Table) 05/21/23 05/22/23 05/22/23 Range/Units 21:09 05:41 05:41 RBC 3.58 L (4.10-5.20) X 10*6/uL Hgb 9.9 L (12.0-15.0) g/dL Hct 32.0 L (37.2-46.3) % MCHC 30.9 L (32.0-37.0) g/dL RDW 15.1 H (11.5-14.5) % Eosinophils # 0.39 H (0.04-0.35) X 10*3/uL BUN 7.9 L (9.0-27.0) mg/dL Creatinine 0.5 L (0.6-1.5) mg/dL Urine Ketones Trace H (Negative) Ur Leukocyte Esterase Large H (Negative) Urine WBC 30 H (0-5) /hpf Urine Bacteria Many H (None) /hpf Assessment and Plan (1) Penicillin allergy Current Visit: Yes Status: Acute Code(s): Z88.0 - ALLERGY STATUS TO PENICILLIN SNOMED Code(s): 23763397 (2) Infection due to ESBL-producing Escherichia coli Current Visit: Yes Status: Acute Code(s): A49.8 - OTHER BACTERIAL INFECTIONS OF UNSPECIFIED SITE; Z16.12 - EXTENDED SPECTRUM BETA LACTAMASE (ESBL) RESISTANCE SNOMED Code(s): 087835322 (3) Urinary tract infection Current Visit: Yes Status: Acute Code(s): N39.0 - URINARY TRACT INFECTION, SITE NOT SPECIFIED SNOMED Code(s): 53273335 Plan: 1-patient with a positive urine culture with ESBL E. coli this patient presented to the hospital with weakness mental status changes and did have some urinary symptoms did have a positive UA and elevated white count patient has shown clinical improvement without getting treatment for this ESBL E. coli with question of possible contamination versus true pathogen 2patient did have repeat UA which is better than the initial UA but not comple tely normal 3patient is behaving more of his cystitis rather than deep infection she will get her second dose of Invanz today and 1 dose at the nursing facility tomorrow through peripheral IV no need for midline or PICC line this was discussed in detail with the WORK TICKET DISTRIBUTOR for admitting team working on discharge Dictation was produced using [employer] dictation software. please excuse any grammatical, word or spelling errors. Time with Patient: Less than 30
[2023-05-22 14:37] VITALS: BP 115/68; PULSE 77
[2023-05-22] MEDS ORDERED: ERTAPENEM 1 GM in SODIUM CHLORIDE 0.9% 50 ML IVPB SCH (15:00)
== END 2023-05-22 16:00 ==
LOC: EC 11:18 → 6NMEDSUR 17:38 → OBSVTOIN 17:39 → INTOOBSV 17:39 → 6NMEDSUR 18:19 → UNDODISIN 05-22 16:00
PROVIDERS: ADMIT Hospitalist; ATTEND Hospitalist
DX: N39.0 Urinary tract infection, site not specified (principal); E44.0 Moderate protein-calorie malnutrition; Z68.1 Body mass index [BMI] 19.9 or less, adult; B96.20 Unspecified Escherichia coli [E. coli] as the cause of diseases classified elsewhere; R26.2 Difficulty in walking, not elsewhere classified; R74.8 Abnormal levels of other serum enzymes; D64.9 Anemia, unspecified; L89.152 Pressure ulcer of sacral region, stage 2; Z20.822 Contact with and (suspected) exposure to COVID-19; Z85.828 Personal history of other malignant neoplasm of skin; Z86.73 Personal history of transient ischemic attack (TIA), and cerebral infarction without residual deficits; Z79.899 Other long term (current) drug therapy; Z88.0 Allergy status to penicillin; Z88.5 Allergy status to narcotic agent; Z91.040 Latex allergy status
CPT/HCPCS: 96361 ×7; 96366 ×7; 96367; 96372 ×7; 96365; 99285; 36415; 94760 ×2; 93005; 97162; 97166; 82747; 83880; 80053 ×3; 80048 ×2; 84443; 82330; 82607; 83605; 83735 ×2; 84100 ×2; 84484; 85025 ×5; 85610; 85730; 81001 ×2; 87086 ×2; 87077 ×2; 87186 ×2; 87636; G0378 ×8; J1644 ×7; J0696 ×7; J1335 ×2

== ENCOUNTER → 2023-06-12 | Outpatient (CLI) | payer MEDICARE, OTHER ==
--- NOTE | 2023-06-12 12:07 | FL ---
COMPARISON: NONE DATE OF EXAM: 06/12/2023 HISTORY: Dysphagia A number of thin and thick substances were ingested under the care of the department of speech pathol ogy. There is no evidence of aspiration or penetration. There is no evidence of obstruction. 54 se conds of fluoroscopy was provided IMPRESSION: 1. No evidence of aspiration or penetration.
== END | disposition home or self-care (01) ==
LOC: RADFLMAIN 11:21
PROVIDERS: ATTEND Family Medicine
DX: R13.19 Other dysphagia (principal)
CPT/HCPCS: 74230

== ENCOUNTER → 2024-09-26 | Outpatient (CLI) | payer OTHER ==
--- NOTE | 2024-09-26 12:41 | BD ---
EXAMINATION TYPE: Axial Bone Density DATE OF EXAM: 09/26/2024 CLINICAL HISTORY: 74 years old Female. ICD-10 CODE: M81.0 AGE RELATED OSTEO , Additional History: Height: 60 Weight: 120.3 FRAX RISK QUESTIONS: Alcohol (3 or more units per day): no Family History (Parent hip fracture): no Glucocorticoids (More than 3mos): no (Ex: prednisone, prednisolone, methylprednisolone, dexamethasone, and hydrocortisone). History of Fracture in Adulthood: no Secondary Osteoporosis: 1. Type 1 Diabetes: no 2. Hyperthyroidism: no 3. Menopause before 45: no 4. Malnutrition: no 5. Chronic liver disease: no Rheumatoid Arthritis: no Current Tobacco Use: no RISK FACTORS HISTORY OF: Surgery to Spine/Hip(right/left)/Wrist (right/left): no EXAM MEASUREMENTS: Bone mineral densitometry was performed using the [employer] System. Bone mineral density as measured about the Lumbar spine is: ----- L1-L4(G/cm2): 0.551 T Score Values are as follows: ----- L1: -6.1 ----- L2: -5.6 ----- L3: -5.6 ----- L4: -4.0 ----- L1-L4: -5.2 Z Score Values are as follows: ----- L1: -4.1 ----- L2: -3.6 ----- L3: -3.5 ----- L4: -2.0 ----- L1-L4: -3.2 Bone mineral density : baseline Bone mineral density about the R hip (g/cm2): 0.488 Bone mineral density about the L hip (g/cm2): 0.426 T Score values are as follows: -----R Neck: -3.9 -----L Neck: -3.3 -----R Total: -4.1 -----L Total: -4.6 Z Score values are as follows: -----R Neck: -1.9 -----L Neck: -1.3 -----R Total: -2.3 -----L Total: -2.8 Bone mineral density : baseline FRAX%s: The graph provided illustrates a 30.3% chance for a major osteoporotic fx and a 15.7% chance for the hips probability for fx in 10 years time. IMPRESSION: Osteoporosis (T Score less than -2.5). There is increased fracture risk and therapy is usually indicated based on age. Re-Screen 1-2 years. NOTE: T-SCORE=SD OF THE YOUNG ADULT MEAN. [facility], , 09/26/2024 12:39 PM
== END | disposition home or self-care (01) ==
LOC: RADBDWWP 11:24
PROVIDERS: ATTEND Internal Medicine Hospice and Palliative Medicine
DX: M81.0 Age-related osteoporosis without current pathological fracture (principal)
CPT/HCPCS: 77080